=== PATIENT | female | born 1980 | race Asian ===

== ENCOUNTER 2018-08-18 19:29 | Outpatient (CLI) | payer BC, MEDICAID ==
[2018-08-18] MEDS ORDERED: LACTATED RINGER'S 1,000 ML IV (23:16)
[2018-08-18] MEDS ORDERED: IBUPROFEN 600 MG TAB PO (23:30)
[2018-08-18] MEDS ORDERED: MISOPROSTOL 200 MCG TAB PR (23:30)
[2018-08-18] MEDS ORDERED: METHYLERGONOVINE 0.2 MG INJ IM (23:30)
[2018-08-18] MEDS ORDERED: LIDOCAINE 1% (MPF) 30 ML INJ INJ (23:30)
[2018-08-18] MEDS ORDERED: CARBOPROST 250 MCG INJ IM (23:30)
[2018-08-18] MEDS ORDERED: BUTORPHANOL 2 MG INJ IV (23:30)
[2018-08-18] MEDS ORDERED: OXYTOCIN 30 UNITS/LR 500 ML IV ×3 (23:30)
[2018-08-19] MEDS: LACTATED RINGER'S 1,000 ML IV ×2 (01:02→08:42)
[2018-08-19 01:26] LABS: ADD MAN DIFF? NO
[2018-08-19 01:28] LABS: BASOPHILS % 0.4 % (0.0-2.0); EOSINOPHILS # 0.2 10^3/ul (0.0-0.5); EOSINOPHILS % 1.5 % (0.0-7.0); HEMATOCRIT 36.9 % (37.0-47.0); HEMOGLOBIN 11.7 g/dl (12.0-16.0); LYMPHOCYTES # 1.6 10^3/ul (0.8-2.9); LYMPHOCYTES % 14.8 % (15.0-51.0); MEAN CORPUSCULAR HEMOGLOBIN 29.7 pg (29.0-33.0); MEAN CORPUSCULAR HGB CONC 31.7 g/dl (32.0-37.0); MEAN CORPUSCULAR VOLUME 93.7 fl (82.0-101.0); MEAN PLATELET VOLUME 11.1 fl (7.4-10.4); MONOCYTE # 0.8 10^3/ul (0.3-0.9); MONOCYTES % 7.7 % (0.0-11.0); NEUTROPHIL # 7.8 10^3/ul (1.6-7.5); NEUTROPHILS % 74.3 % (39.0-77.0); NUCLEATED RED BLOOD CELLS% 0.3 /100WBC (0.0-0.0); PLATELET COUNT 202 10^3/UL (140-415); RED BLOOD COUNT 3.94 10^6/ul (4.20-5.40); RED CELL DISTRIBUTION WIDTH 13.6 % (11.5-14.5)
[2018-08-19 01:28] LABS: WHITE BLOOD COUNT 10.5 10^3/ul (4.8-10.8)
[2018-08-19 01:48] LABS: INR 0.87; PARTIAL THROMBOPLASTIN TIME 28.6 Sec (23.0-35.0); PROTIME 11.9 Sec (11.9-14.9); PT RATIO 0.9
[2018-08-19 02:23] LABS: HEPATITIS B SURFACE ANTIGEN NEGATIVE (NEGATIVE)
[2018-08-19 15:42] LABS: RAPID PLASMA REAGIN NONREACTIVE (NR)
== END 2018-08-19 11:30 | disposition home or self-care (01) ==
LOC: OBT 19:29 → L-D 19:30 → OBT 23:30 → L-D 23:30 → OBT 08-19 11:30
DX: O26.899 Other specified pregnancy related conditions, unspecified trimester (principal); R10.2 Pelvic and perineal pain; O09.529 Supervision of elderly multigravida, unspecified trimester; Z3A.00 Weeks of gestation of pregnancy not specified
CPT/HCPCS: 76815; 76818; 85025; 85610; 85730; 86592; 86850; 86900; 86901; 87340

== ENCOUNTER 2018-08-21 22:35 | Inpatient (IN) | payer BC ==
[2018-08-21] MEDS ORDERED: MISOPROSTOL 200 MCG TAB PR (23:30)
[2018-08-21] MEDS ORDERED: OXYTOCIN 30 UNITS/LR 500 ML IV ×2 (23:30)
[2018-08-21] MEDS ORDERED: CARBOPROST 250 MCG INJ IM (23:30)
[2018-08-21] MEDS ORDERED: METHYLERGONOVINE 0.2 MG INJ IM (23:30)
[2018-08-21] MEDS: LACTATED RINGER'S 1,000 ML IV (23:55)
[2018-08-22 00:18] LABS: ADD MAN DIFF? NO
[2018-08-22 00:22] LABS: BASOPHILS % 0.4 % (0.0-2.0); EOSINOPHILS # 0.1 10^3/ul (0.0-0.5); EOSINOPHILS % 1.2 % (0.0-7.0); HEMATOCRIT 35.9 % (37.0-47.0); HEMOGLOBIN 11.5 g/dl (12.0-16.0); LYMPHOCYTES # 1.3 10^3/ul (0.8-2.9); LYMPHOCYTES % 13.2 % (15.0-51.0); MEAN CORPUSCULAR HEMOGLOBIN 29.7 pg (29.0-33.0); MEAN CORPUSCULAR VOLUME 92.8 fl (82.0-101.0); MEAN PLATELET VOLUME 11.1 fl (7.4-10.4); MONOCYTE # 0.8 10^3/ul (0.3-0.9); MONOCYTES % 7.5 % (0.0-11.0); NEUTROPHIL # 7.7 10^3/ul (1.6-7.5); NEUTROPHILS % 76.9 % (39.0-77.0); PLATELET COUNT 208 10^3/UL (140-415); RED BLOOD COUNT 3.87 10^6/ul (4.20-5.40); RED CELL DISTRIBUTION WIDTH 13.8 % (11.5-14.5)
[2018-08-22 00:42] LABS: INR 0.89; PROTIME 12.2 Sec (11.9-14.9)
[2018-08-22 00:43] LABS: PARTIAL THROMBOPLASTIN TIME 28.4 Sec (23.0-35.0)
[2018-08-22 01:11] LABS: HEPATITIS B SURFACE ANTIGEN NEGATIVE (NEGATIVE)
[2018-08-22] MEDS: OXYTOCIN 30 UNITS/LR 500 ML IV ×3 (01:20→21:19)
[2018-08-22] MEDS: BUTORPHANOL 2 MG INJ IV ×2 (07:13)
[2018-08-22] MEDS: LACTATED RINGER'S 1,000 ML IV ×2 (07:21→12:39)
[2018-08-22] MEDS: ONDANSETRON 4 MG INJ IV (08:31)
[2018-08-22 13:56] LABS: AADO2 Cord Arterial 48.4 mmHg; Arterial Cord Blood pCO2 72.3 mmHG (25-50); CBA Base Excess -4.6 mmol/L; CBA COHb 0.1 %; CBA Total Hemglobin 16.3 g/dl; Cord Blood Arterial pO2 14.8 mmHG (15.0-45.0); Fraction OxyHgb Cord Arterial 20.6 %; MODE ROOM AIR; MetHgb Cord Arterial 1.8 %; Sample Type CBA; Site CORD
[2018-08-22 13:58] LABS: CBV Base Excess -3.9 mmol/L; CBV COHb 1.1 %; CBV Oxygen Sat 59.3 mmHG; CBV Total Hemglobin 17.6 g/dl; Cord Blood Venous AADO2 58.8 mmHg; Cord Blood Venous pO2 25.5 mmHG (15.0-45.0); Fraction OxyHgb Cord Venous 57.9 %; MODE ROOM AIR; MetHgb Cord Venous 1.3 %; Sample Type CBV; Site CORD
[2018-08-22] MEDS: LIDOCAINE 1% (MPF) 30 ML INJ INJ (14:08)
[2018-08-22] MEDS: IBUPROFEN 600 MG TAB PO ×3 (15:04→18:48)
[2018-08-22 15:33] LABS: RAPID PLASMA REAGIN NONREACTIVE (NR)
[2018-08-22] MEDS ORDERED: METHYLERGONOVINE 0.2 MG INJ IM (16:30)
[2018-08-22] MEDS ORDERED: OXYTOCIN 30 UNITS/LR 500 ML IV (16:30)
[2018-08-22] MEDS ORDERED: ONDANSETRON 4 MG INJ IV (16:30)
[2018-08-22] MEDS ORDERED: MISOPROSTOL 200 MCG TAB PR (16:30)
[2018-08-22] MEDS ORDERED: DIPHENHYDRAMINE 25 MG CAP PO (16:30)
[2018-08-22] MEDS ORDERED: NACL 0.9% 3 ML SYG IV (16:30)
[2018-08-22] MEDS ORDERED: ZOLPIDEM 5 MG TAB PO (16:30)
[2018-08-22] MEDS ORDERED: CARBOPROST 250 MCG INJ IM (16:30)
[2018-08-22 16:55] LABS: HEMATOCRIT 33.8 % (37.0-47.0); HEMOGLOBIN 10.7 g/dl (12.0-16.0)
[2018-08-22] MEDS: LANOLIN HPA 1 PKT TOP (17:16)
[2018-08-22] MEDS: WITCH HAZEL/GLYCERIN PAD PR (17:16)
[2018-08-22] MEDS: SENNA/DOCUSATE NA (8.6MG/50MG) TAB PO (21:42)
[2018-08-23] MEDS: IBUPROFEN 600 MG TAB PO ×3 (06:25→17:22)
[2018-08-23] MEDS: SENNA/DOCUSATE NA (8.6MG/50MG) TAB PO ×2 (08:44→19:47)
[2018-08-23] MEDS: FERROUS SULFATE (EC) 325 MG TAB PO (08:44)
[2018-08-23] MEDS: BENZOCAINE 20% 56 ML SPRAY TOP (08:44)
[2018-08-23 08:51] LABS: ADD MAN DIFF? NO
[2018-08-23 08:57] LABS: BASOPHIL # 0.1 10^3/ul (0.0-0.1); BASOPHILS % 0.4 % (0.0-2.0); EOSINOPHILS # 0.1 10^3/ul (0.0-0.5); EOSINOPHILS % 0.6 % (0.0-7.0); HEMATOCRIT 27.5 % (37.0-47.0); HEMOGLOBIN 8.8 g/dl (12.0-16.0); LYMPHOCYTES # 1.6 10^3/ul (0.8-2.9); LYMPHOCYTES % 11.1 % (15.0-51.0); MEAN CORPUSCULAR HEMOGLOBIN 30.2 pg (29.0-33.0); MEAN CORPUSCULAR VOLUME 94.5 fl (82.0-101.0); MONOCYTE # 0.8 10^3/ul (0.3-0.9); MONOCYTES % 5.6 % (0.0-11.0); NEUTROPHIL # 11.4 10^3/ul (1.6-7.5); NEUTROPHILS % 81.3 % (39.0-77.0); NUCLEATED RED BLOOD CELLS% 0.1 /100WBC (0.0-0.0); PLATELET COUNT 179 10^3/UL (140-415); RED BLOOD COUNT 2.91 10^6/ul (4.20-5.40); RED CELL DISTRIBUTION WIDTH 13.8 % (11.5-14.5)
[2018-08-23] MEDS: DIBUCAINE 1% 30 GM OINT TOP (10:45)
[2018-08-23] MEDS: HYDROCODONE/APAP (5/325) TAB PO (19:46)
[2018-08-24] MEDS: IBUPROFEN 600 MG TAB PO ×4 (06:01→17:17)
[2018-08-24] MEDS: MEASLES,MUMPS,RUBELLA VACCINE INJ SC* (09:00)
[2018-08-24] MEDS: VARICELLA VACCINE LIVE/PF 1,350 UNIT/0.5 ML ML SC* (09:00)
[2018-08-24] MEDS: SENNA/DOCUSATE NA (8.6MG/50MG) TAB PO (09:37)
[2018-08-24] MEDS: HYDROCODONE/APAP (5/325) TAB PO ×2 (09:37→16:04)
[2018-08-24] MEDS: FERROUS SULFATE (EC) 325 MG TAB PO (09:37)
[2018-08-24] MEDS: DIPHTH/TET/ACEL PERTUSS (ADULT) 0.5 ML VIAL IM* (11:56)
[2018-08-24] MEDS: BENZOCAINE 20% 56 ML SPRAY TOP (12:15)
[2018-08-24] MEDS: WITCH HAZEL/GLYCERIN PAD PR (12:17)
[2018-08-24] MEDS: DIBUCAINE 1% 30 GM OINT TOP (12:17)
== END 2018-08-24 18:42 | disposition home or self-care (01) | DRG 806 ==
LOC: OBT 22:35 → L-D 22:37 → PP1 08-22 15:59
PROVIDERS: Obstetrics & Gynecology
PROC: 10D07Z6 Extraction of Products of Conception, Vacuum, Via Natural or Artificial Opening (ICD-10-PCS; principal; 2018-08-22)
PROC: 0KQM0ZZ Repair Perineum Muscle, Open Approach (ICD-10-PCS; 2018-08-22)
PROC: 10907ZC Drainage of Amniotic Fluid, Therapeutic from Products of Conception, Via Natural or Artificial Opening (ICD-10-PCS; 2018-08-22)
DX: O76 Abnormality in fetal heart rate and rhythm complicating labor and delivery (principal); O22.43 Hemorrhoids in pregnancy, third trimester; Z37.0 Single live birth; O77.0 Labor and delivery complicated by meconium in amniotic fluid; O66.0 Obstructed labor due to shoulder dystocia; O69.1XX0 Labor and delivery complicated by cord around neck, with compression, not applicable or unspecified; O70.1 Second degree perineal laceration during delivery; Z3A.39 39 weeks gestation of pregnancy; Z23 Encounter for immunization
CPT/HCPCS: 36415; 36600; 82803; 85014; 85018; 85025; 85610; 85730; 86592; 86850; 86900; 86901; 87340; 88307; 90715; 90716; 99464